=== PATIENT | male | born 1950 | race Caucasian/White ===

== ENCOUNTER 2020-01-04 05:16 | Inpatient (IN) ==
--- NOTE | 2019-12-25 10:36 | PAT Medication Instructions ---
Medication Instructions Date of Service December 25, 2019 Home Medications cholecalciferol (vitamin D3) [Vitamin D3] 2,000 unit PO QAM dutasteride 0.5 mg PO QPM gabapentin 300 mg PO BID gqtfmzuv-mcxro-yjbvo-CF borate [[employer] [facility]] 1 tab PO BID meloxicam [Mobic] 15 mg PO QAM pravastatin 20 mg PO HS tamsulosin 0.8 mg PO HS tramadol 100 mg PO BID PRN ASK your surgeon for instructions meloxicam [Mobic] 15 mg PO QAM STOP taking 2 weeks before surgery If surgery is within 2 weeks, stop taking as soon as possible. wadesmeb-kyrjx-ditqq-CF borate [[employer]] 1 tab PO BID DO NOT take the morning of surgery cholecalciferol (vitamin D3) [Vitamin D3] 2,000 unit PO QAM Take morning of surgery With a small sip of water, OTHERWISE NOTHING TO EAT OR DRINK AFTER MIDNIGHT: gabapentin 300 mg PO BID tramadol 100 mg PO BID PRN (if needed, may be taken up to four hours before surgery) Take evening before surgery dutasteride 0.5 mg PO QPM gabapentin 300 mg PO BID pravastatin 20 mg PO HS tamsulosin 0.8 mg PO HS tramadol 100 mg PO BID PRN (if needed) Other Notes If you have any questions please call us at [phone] or [phone] or [phone] or [phone]
--- NOTE | 2019-12-25 10:49 | Anesthesiology Consultation ---
Date of Service December 25, 2019 Assessment & Plan (1) Encounter for pre-operative examination: Chart Review Chart Review: Acceptable Risk for Surgery (pending surgeon ordered pcp clearance) and Patient seen in Pre Admission Testing Teaching & Discussion Instructed NPO after midnight before surgery, except medications with 15 cc of water. Medication instructions provided according to the PAT guidelines. History Surgery Operation Date: 01/04/20 09:10 Proposed Procedures p Right Total Knee Arthroplasty - Ronal Solis MD Height/Weight Height: 5 ft 9 in Weight: 95.3 kg Allergies Allergy/AdvReac Type Severity Reaction Status Date / Time No Known Allergies Allergy Verified 12/20/19 13:41 Medications Home Medications Medication Instructions Recorded Confirmed Last Taken cholecalciferol (vitamin D3) 2,000 unit PO QAM 12/20/19 12/20/19 Unknown [Vitamin D3] dutasteride 0.5 mg PO QPM 12/20/19 12/20/19 Unknown gabapentin 300 mg PO BID 12/20/19 12/20/19 Unknown pydcaidu-mutis-oqipz-CF borate 1 tab PO BID 12/20/19 12/20/19 Unknown [[facility] [employer] [facility]] meloxicam [Mobic] 15 mg PO QAM 12/20/19 12/20/19 Unknown pravastatin 20 mg PO HS 12/20/19 12/20/19 Unknown tamsulosin 0.8 mg PO HS 12/20/19 12/20/19 Unknown tramadol 100 mg PO BID PRN 12/20/19 12/20/19 Unknown Past Medical History Medical History BPH (benign prostatic hyperplasia) Hyperlipidemia Osteoarthritis Exercise / Class Metabolic Activity II 4-5 Yardwork/Stairs/Walk up hill (Denies CP or SOB with 1 FOS, but moving slowly, limited by knee pain) Past Surgical History Surgical History History of back surgery History of colonoscopy History of tonsillectomy and adenoidectomy Hx of meniscectomy of right knee Past Anesthesia History No Hx of Anesthesia Complications and No Family Hx of Anesthesia Complications History of PONV No Hx of PONV and No Hx of Motion Sickness Social History Smoking Status: Never smoker Do You Dip or Chew Tobacco: No (QUIT 8 YR AGO) Hx Alcohol Use: No Hx Substance Use: No Review of Systems Pt denies any recent chest pain, shortness of breath, palpitations, cough, fever or URI. Physical Exam Vital Signs BP: 142/82 P: 74bpm SPO2: 96% RA T: 97.8 F R: 16 ENMT Mouth: + loose teeth (2 very slightly loose molars); no dental restorations and no chipped teeth Thyromental Distance: > or= 3.5 Finger Breadths (3.5) Mallampati Class: II Mouth / Teeth: 1. loose 2. loose Neck normal visual inspection; neck extension not limited Respiratory normal respiratory effort Auscultation: lungs clear to auscultation bilaterally Cardiovascular Rate/Rhythm: regular rate and regular rhythm Heart Sounds: no murmur Vessels: no carotid bruit Testing Laboratory Results 12/25/19 11:00 12/25/19 11:00 PT 10.8 Seconds (9.0-12.0) 12/25/19 11:00 INR 1.1 (0.9-1.1) 12/25/19 11:00 APTT 27.2 Seconds (21.0-31.0) 12/25/19 11:00 Hemoglobin A1c 5.4 % (4.5-5.6) 12/25/19 11:00 Urine Color Dark Yellow 12/25/19 Unknown Urine Appearance Clear (Clear) 12/25/19 Unknown Urine pH 7.0 (4.5-7.5) 12/25/19 Unknown Ur Specific [place] 1.022 (1.000-1.030) 12/25/19 Unknown Urine Protein Negative (Negative) 12/25/19 Unknown Urine Glucose (UA) Negative (Negative) 12/25/19 Unknown Urine Ketones Negative (Negative) 12/25/19 Unknown Urine Nitrite Negative (Negative) 12/25/19 Unknown Ur Leukocyte Esterase Negative (Negative) 12/25/19 Unknown Blood Type O Positive 12/25/19 11:00 Antibody Screen NEGATIVE 12/25/19 11:00 Electrocardiogram Date: 12/25/19 Findings: + NSR @ (64bpm) Minimal voltage criteria for LVH, may be normal variant. Chest X-Ray Date: 12/25/19 Findings: + NAD Osteopenia.
--- NOTE | 2019-12-25 11:22 | XRay Report ---
TWO VIEW CHEST CLINICAL HISTORY: Preoperative examination. FINDINGS: PA and lateral chest radiographs are obtained. No prior studies are available for compariso n at the time of dictation. The cardiomediastinal silhouette is unremarkable. The lungs and pleural spaces are clear. There is no pneumothorax. The skeletal structures are osteopenic. The bony thorax appears intact. Degenerative changes noted throughout the thoracic spine. IMPRESSION: No active disease in the chest. ACT 112: Negative or not required by law. Electronically signed by: Isidoro Acosta M.D. 12/25/2019 11:21 AM
--- NOTE | 2019-12-25 12:26 | Electrocardiogram Report ---
Test Reason : Blood Pressure : / mmHG Vent. Rate : 064 BPM Atrial Rate : 064 BPM P-R Int : 176 ms QRS Dur : 092 ms QT Int : 416 ms P-R-T Axes : 072 046 060 degrees QTc Int : 429 ms Normal sinus rhythm Minimal voltage criteria for LVH, may be normal variant Borderline ECG No previous ECGs available Confirmed by Byron Ignacio ([id number]) on 12/25/2019 12:26:00 PM Referred By: Ronal Solis Confirmed By:Byron Ignacio
[2019-12-25 12:33] LABS: Basophils # (auto) 0.02 K/uL (0-0.2); Basophils % (auto) 0.5 %; Eosinophils # (auto) 0.14 K/uL (0-0.5); Eosinophils % (auto) 3.2 %; Hematocrit (blood only) 42.6 % (42-52); Hemoglobin 15.5 g/dL (14.0-18.0); Immature Granulocytes # (auto) 0.01 K/uL (0.00-0.02); Immature Granulocytes % (auto) 0.2 %; Lymphocytes # (auto) 1.35 K/uL (1.2-3.4); Lymphocytes % (auto) 30.6 %; Mean Corpuscular Hgb Conc 36.4 g/dL (32-36); Mean Platelet Volume 10.3 fL (7.4-10.4); Monocytes # (auto) 0.32 K/uL (0.11-0.59); Monocytes % (auto) 7.3 %; Neutrophils # (auto) 2.57 K/uL (1.4-6.5); Neutrophils % (auto) 58.2 %; Platelet Count 173 K/uL (130-400); RDW Coefficient of Variation 12.8 % (11.5-14.5); RDW Standard Deviation 41.1 fL (36.4-46.3); Red Blood Count 4.84 M/uL (4.7-6.1); White Blood Count 4.41 K/uL (4.8-10.8)
[2019-12-25 12:35] LABS: Appearance Urine Clear (Clear); Bilirubin Urine Negative (Negative); Blood Urine Negative (Negative); Color Urine Dark Yellow; Glucose Urine UA Negative (Negative); Ketones Urine Negative (Negative); Leukocyte Esterase Urine Negative (Negative); Nitrite Urine Negative (Negative); Protein Urine Negative (Negative); Specific Gravity Urine 1.022 (1.000-1.030); Urobilinogen Urine Negative (Negative)
[2019-12-25 12:45] LABS: INR 1.1 (0.9-1.1); Partial Thromboplastin Time 27.2 Seconds (21.0-31.0); Prothrombin Time 10.8 Seconds (9.0-12.0)
[2019-12-25 12:49] LABS: BUN Creatinine Ratio 20.5 (10-20); Calcium 9.3 mg/dl (8.5-10.1); Creatinine Clr Calc Pharmacy 87.5 ml/min; Est GFR (African American) 98.7; Est GFR (Non-African American) 85.2; Potassium 4.5 mmol/L (3.5-5.1)
[2019-12-25 13:09] LABS: Estimated Average Glucose 108 mg/dl; Hemoglobin A1C 5.4 % (4.5-5.6)
--- NOTE | 2019-12-25 14:23 | History & Physical Report ---
Date of Service December 25, 2019 Assessment & Plan (1) Primary osteoarthritis of right knee: Treatment options discussed. Patient has failed conservative measures as above. Risks, benefits and alternatives to surgery including but not limited to infection, DVT, pain, stiffness, need for revision surgery, damage to blood vessels, damage to nerves, PE, , were discussed with the patient and they wish to proceed. Plan will be for right total knee arthroplasty at [facility] on 01/04/20. We will plan on ASA 81mg BID x 30 days post operatively as DVT prophylaxis. He will plan on outpatient PT upon discharge. All questions answered. He will follow up post operatively. History of Present Illness Chief Complaint: Right knee pain Primary Care Provider: Bin Meier Patient is a 69 year old male with PMHx significant for BPH and OA presents with ongoing right knee pain. Pain is affecting his ability to carry out normal daily activites and do the activities he would like to do. He has tried and failed conservative measures including cortisone and visco injections, antiinflammatories, PT, as well as previous arthroscopy. He would like to proceed with right knee replacement. Patient denies headaches, sweats, fevers, chills, double vision, blurred vision, cough, sore throat, dysphagia, chest pain, sob, wheezing, n/v/d/c, numbness, tingling, fatigue, urinary symptoms, mood disorders. ROS positive for right knee pain and stiffness. Allergies Allergy/AdvReac Type Severity Reaction Status Date / Time No Known Allergies Allergy Verified 12/20/19 13:41 Home Medications Home Medications Medication Instructions Recorded Confirmed Type cholecalciferol (vitamin D3) 2,000 unit PO QAM 12/20/19 12/20/19 History [Vitamin D3] dutasteride 0.5 mg PO QPM 12/20/19 12/20/19 History gabapentin 300 mg PO BID 12/20/19 12/20/19 History bitnlqus-tyyqb-tdimq-CF borate 1 tab PO BID 12/20/19 12/20/19 History [[facility]] meloxicam [Mobic] 15 mg PO QAM 12/20/19 12/20/19 History pravastatin 20 mg PO HS 12/20/19 12/20/19 History tamsulosin 0.8 mg PO HS 12/20/19 12/20/19 History tramadol 100 mg PO BID PRN 12/20/19 12/20/19 History Past Med/Surg History Medical History BPH (benign prostatic hyperplasia) Hyperlipidemia Osteoarthritis Surgical History History of back surgery History of colonoscopy History of tonsillectomy and adenoidectomy Hx of meniscectomy of right knee Social History Preferred Language: Latvian Communication Ability: Effective Beliefs That Will Affect Care: None Current Living Situation: Spouse Current Living Situation Comment: IS SLIGHTLY DISABLES -DIABETES, AND MOBILITY ISSUES Feels Safe at Home: Yes Smoking Status: Never smoker Do You Dip or Chew Tobacco: No (QUIT 8 YR AGO) ; Second Hand Exposure: Yes (FATHER SMOKED AND AT WORK) ; Hx Alcohol Use: No Hx Substance Use: No Review of Systems All systems reviewed & are unremarkable except as noted in HPI & below Physical Exam Constitutional: well developed and well nourished; no acute distress Eyes: PERRL, conjunctivae normal, anicteric sclerae ENMT: external ear and nose normal, oropharynx normal Neck: trachea midline, no thyromegaly Respiratory: normal respiratory effort, lungs clear to auscultation Cardiovascular: RRR, no murmur, no edema Musculoskeletal: Right knee: Skin is normal. No lymphadenopathy is appreciated. Mild effusion, range of motion 0-135 flexion, negative anterior drawer, negative posterior drawer, negative Ramila's, knee stable to varus and valgus stress at 0 to 30 of flexion. Tender to palpation medial joint line, positive Eb's. Varus deformity Skin: no rashes, warm and dry Neurologic: patellar DTR's 2+ bilat, sensation intact Psychiatric: A+Ox3, euthymic affect Results & Data Laboratory Results Lab Results 12/25/19 12/25/19 12/25/19 Range/Units 11:00 11:00 11:00 WBC 4.41 L (4.8-10.8) K/uL RBC 4.84 (4.7-6.1) M/uL Hgb 15.5 (14.0-18.0) g/dL Hct 42.6 (42-52) % MCV 88.0 (80-100) fL MCH 32.0 (25-34) pg MCHC 36.4 H (32-36) g/dL RDW Std Deviation 41.1 (36.4-46.3) fL RDW Coeff of Andres 12.8 (11.5-14.5) % Plt Count 173 (130-400) K/uL MPV 10.3 (7.4-10.4) fL Immature Gran % (Auto) 0.2 % Neut % (Auto) 58.2 % Lymph % (Auto) 30.6 % [place] % (Auto) 7.3 % Eos % (Auto) 3.2 % Baso % (Auto) 0.5 % Immature Gran # (Auto) 0.01 (0.00-0.02) K/uL Neut # (Auto) 2.57 (1.4-6.5) K/uL Lymph # (Auto) 1.35 (1.2-3.4) K/uL [place] # (Auto) 0.32 (0.11-0.59) K/uL Eos # (Auto) 0.14 (0-0.5) K/uL Baso # (Auto) 0.02 (0-0.2) K/uL PT 10.8 (9.0-12.0) Seconds INR 1.1 (0.9-1.1) APTT 27.2 (21.0-31.0) Seconds PTT Ratio 1.0 Sodium 141 (136-145) mmol/L Potassium 4.5 (3.5-5.1) mmol/L Chloride 108 H (98-107) mmol/L Carbon Dioxide 31 (21-32) mmol/L Anion Gap 2.0 L (3-11) BUN 19 H (7-18) mg/dl Creatinine 0.92 (0.6-1.4) mg/dl Est Cr Clr Drug Dosing 87.5 ml/min Est GFR ( Amer) 98.7 Est GFR (Non-Af Amer) 85.2 BUN/Creatinine Ratio 20.5 H (10-20) Glucose 76 (70-99) mg/dl Estimat Average Glucose mg/dl Hemoglobin A1c (4.5-5.6) % Calcium 9.3 (8.5-10.1) mg/dl Albumin 4.0 (3.4-5.0) gm/dl Urine Color Urine Appearance (Clear) Urine pH (4.5-7.5) Ur Specific [place] (1.000-1.030) Urine Protein (Negative) Urine Glucose (UA) (Negative) Urine Ketones (Negative) Urine Blood (Negative) Urine Nitrite (Negative) Urine Bilirubin (Negative) Urine Urobilinogen (Negative) Ur Leukocyte Esterase (Negative) Blood Type Antibody Screen 12/25/19 12/25/19 12/25/19 Range/Units 11:00 11:00 Unknown WBC (4.8-10.8) K/uL RBC (4.7-6.1) M/uL Hgb (14.0-18.0) g/dL Hct (42-52) % MCV (80-100) fL MCH (25-34) pg MCHC (32-36) g/dL RDW Std Deviation (36.4-46.3) fL RDW Coeff of Andres (11.5-14.5) % Plt Count (130-400) K/uL MPV (7.4-10.4) fL Immature Gran % (Auto) % Neut % (Auto) % Lymph % (Auto) % [place] % (Auto) % Eos % (Auto) % Baso % (Auto) % Immature Gran # (Auto) (0.00-0.02) K/uL Neut # (Auto) (1.4-6.5) K/uL Lymph # (Auto) (1.2-3.4) K/uL [place] # (Auto) (0.11-0.59) K/uL Eos # (Auto) (0-0.5) K/uL Baso # (Auto) (0-0.2) K/uL PT (9.0-12.0) Seconds INR (0.9-1.1) APTT (21.0-31.0) Seconds PTT Ratio Sodium (136-145) mmol/L Potassium (3.5-5.1) mmol/L Chloride (98-107) mmol/L Carbon Dioxide (21-32) mmol/L Anion Gap (3-11) BUN (7-18) mg/dl Creatinine (0.6-1.4) mg/dl Est Cr Clr Drug Dosing ml/min Est GFR ( Amer) Est GFR (Non-Af Amer) BUN/Creatinine Ratio (10-20) Glucose (70-99) mg/dl Estimat Average Glucose 108 mg/dl Hemoglobin A1c 5.4 (4.5-5.6) % Calcium (8.5-10.1) mg/dl Albumin (3.4-5.0) gm/dl Urine Color Dark Yellow Urine Appearance Clear (Clear) Urine pH 7.0 (4.5-7.5) Ur Specific [place] 1.022 (1.000-1.030) Urine Protein Negative (Negative) Urine Glucose (UA) Negative (Negative) Urine Ketones Negative (Negative) Urine Blood Negative (Negative) Urine Nitrite Negative (Negative) Urine Bilirubin Negative (Negative) Urine Urobilinogen Negative (Negative) Ur Leukocyte Esterase Negative (Negative) Blood Type O Positive Antibody Screen NEGATIVE Diagnostic Findings Right knee: Tricompartmental degenerative changes with bone on bone medial compartment, periarticular osteophyte formation and subchondral sclerosis.
[2020-01-04] MEDS ORDERED: FAMOTIDINE 20 MG TAB PO SCH (06:00)
[2020-01-04] MEDS ORDERED: ROPIVACAINE 0.5% HCL/PF 150 MG, BUPIVACAINE 0.5% MPF 30 ML, EPINEPHrine 30MG/30ML (OR U... INSTIL SCH (06:00)
[2020-01-04] MEDS ORDERED: CeleBREX 200 MG CAP PO SCH (06:00)
[2020-01-04] MEDS ORDERED: ACETAMINOPHEN 500 MG TAB PO SCH (06:00)
[2020-01-04] MEDS ORDERED: LR 500ML BOLUS, THEN 15ML/HR IV SCH (06:00)
[2020-01-04] MEDS ORDERED: dexAMETHasone 4 MG TAB PO SCH (06:00)
[2020-01-04] MEDS ORDERED: CEFAZOLIN 2000MG 2,000 MG/15 ML SYR IV SCH (06:00)
[2020-01-04] MEDS ORDERED: GABAPENTIN 300 MG CAP PO SCH (06:00)
[2020-01-04] MEDS ORDERED: METOCLOPRAMIDE HCL 10 MG TABLET PO SCH (06:00)
[2020-01-04] MEDS ORDERED: BUPIVACAINE 0.5 % 5 MG/1 ML PF 10ML VIAL ONE (06:23)
[2020-01-04] MEDS ORDERED: BUPIVACAINE 0.25% 30 ML VIAL ONE (06:23)
--- NOTE | 2020-01-04 06:49 | History & Physical Bridge Note ---
Date of Service January 04, 2020 History & Physical Bridge Note I have examined the patient, reviewed the History & Physical and in the interval since the performance of the History & Physical I have noted the following changes of clinical significance: no changes noted
[2020-01-04] MEDS ORDERED: ORTHO JOINT ANESTHETIC ONE (07:00)
[2020-01-04] MEDS ORDERED: BACITRACIN INJ 50,000 UNIT VIAL ONE (07:00)
[2020-01-04] MEDS ORDERED: LIDOCAINE HCL 2% 2 ML VIAL/AMP(20MG/ML) INFIL ONE (07:08)
[2020-01-04] MEDS ORDERED: DEXAMETHASONE SOD INJ 4 MG/ML VIAL ONE (07:08)
[2020-01-04] MEDS ORDERED: fentaNYL citrate 100 MCG/2 ML VIAL ONE (07:08)
[2020-01-04] MEDS ORDERED: ONDANSETRON INJ 2 MG/ML 2 ML VIAL ONE (07:08)
[2020-01-04] MEDS ORDERED: MIDAZOLAM HCL 1 MG/ML 2ML VIAL ONE (07:08)
[2020-01-04] MEDS ORDERED: PROPOFOL IV EMULSION 10 MG/ML 20 ML VIAL IV ONE ×2 (07:08→09:02)
[2020-01-04] MEDS ORDERED: ONDANSETRON INJ 2 MG/ML 2 ML VIAL IV PRN ×2 (08:26→10:46)
[2020-01-04] MEDS ORDERED: ATROPINE SULFATE 0.1 MG/ML 10ML SYR IV PRN (08:26)
[2020-01-04] MEDS ORDERED: ePHEDrine sulfate 50 MG/ML AMP IV PRN (08:26)
[2020-01-04] MEDS ORDERED: fentaNYL citrate 100 MCG/2 ML VIAL IV PRN (08:26)
--- NOTE | 2020-01-04 09:05 | Operative Report ---
Post Operative Report Pre & Post Diagnosis Operation Date: 01/04/20 07:30 Pre-Op Diagnosis: RIGHT KNEE OSTEOARTHRITIS Post-Op Diagnosis: RIGHT KNEE OSTEOARTHRITIS I identified the patient and participated in the time-out.: Yes Procedure Operation Date: 01/04/20 07:30 Actual Procedures p Right Total Knee Arthroplasty(Right) - Ronal Solis MD Surgeon Ronal Solis MD Vascular Technician Sotero Suresh PA-C Estimated Blood Loss 20 Findings Consistent with Post-Op Diagnosis Specimens None Drains None Anesthesia Type Spinal MAC Complications none Disposition Accompanied Patient To Recovery: No Disposition: Recovery Room Indications The patient is a 69-year-old male longstanding arthritic change in the right knee. Is pggv-[id number]-lokd medial compartment tricompartmental arthritic change. He is failed conservative measures include injection, anti-inflammatories and rehab. He wishes to proceed with a right total knee arthroplasty. Description of Procedure Risks benefits and alternatives of surgery including but not limited to infection, DVT, pain, stiffness, need for surgery, damage to blood vessels, christian ge to nerves or risks of anesthesia were discussed with the patient and they wished to proceed. The patient was identified and the laterality was confirmed and marked. They received a preoperative antibiotic as well as a spinal anesthetic and an abductor canal block. A well-padded tourniquet was applied and then the limb was prepped and draped in standard manner with ChloraPrep. The limb was exsanguinated and the tourniquet was inflated. I made a standard anterior incision. I sharply incised the skin then utilized Bovie electrocautery to achieve hemostasis. I made a medial parapatellar arthrotomy and mobilized the patella laterally. I then excised the anterior horns of the medial and lateral meniscus as well as the infrapatellar fat pad. I elevated a portion of the MCL off of the tibia. I then pinned into place a patient-matched distal femoral cutting guide and made my distal femoral resection. I then pinned into place the 5 in 1 femoral cutting guide. I made my anterior, posterior and chamfer cuts. I then excised the cruciates and the remaining portions of the menisci. I then pinned into place a patient- matched tibial cutting guide and made my tibial resection. I then pinned into place the tibial plate a utilizing alignment halima to confirm rotation. I then cut for the post. Utilizing a lamina fan mail clerk and I then removed posterior osteophytes off the femur. I then placed a trial femur into position and cut for the trochlear component. I then sequentially trialed to size the polyethylene until there was good soft tissue balancing and range of motion. I then prepared the patella with a freehand cut utilizing sagittal saw. I sized and drilled for the patella. There was good tracking to the patella no lateral release was needed. All the trial components were removed. The deep tissues were anesthetized with an ortho mix solution. Then with Simplex HV with gentamicin cement, I cemented my definitive components. Definitive components, [employer] [place] 2: Femur 7 Tibia 7 Poly 9 Patella 41 oval A betadine soak was performed. The arthrotomy was closed with interrupted #1 Vicryl suture subcutaneous tissue was closed with interrupted 2-0 Vicryl suture. The skin was closed with with valeria. An Acticoat and María dressing were placed. Sterile dressings were applied. All needle and sponge counts were correct at th e end of the procedure patient was transferred to the PACU in stable condition without apparent complication. The PA-C was necessary for assistance with procedure for assistance in positioning, prepping, draping, retraction and closure. I attest to the content of the Intraoperative Record and any orders documented therein. Any exceptions are noted below.
--- NOTE | 2020-01-04 10:16 | Anesthesiology Progress Note ---
Date of Service January 04, 2020 Anesthesia Post Procedure Vital Signs Vital Signs: Temp Pulse Resp BP Pulse Ox 01/04/20 10:10 72 14 96/72 L 95 01/04/20 10:00 66 15 101/63 94 01/04/20 09:51 36.2 C L 75 16 91/61 L 96 01/04/20 05:52 36.6 C 72 16 142/84 H 96 Pain Intensity Right Knee: Pain Intensity: 6 Transfer of Care Handoff Completed per policy Notes Mental Status: alert / awake / arousable and participated in evaluation Nausea / Vomiting: adequately controlled Pain: adequately controlled Airway Patency, RR, SpO2: stable & adequate BP & HR: stable & adequate Hydration State: stable & adequate Neuraxial Anesthesia: was administered and sensory block is resolving Anesthetic Complications: no major complications apparent and Pt Satisfied with anesthetic care
--- NOTE | 2020-01-04 10:45 | XRay Report ---
XR knee RT 1 or 2V routine CLINICAL HISTORY: 69 years-old Male presenting with Surgical Post Op. TECHNIQUE: Frontal and crosstable lateral views of the right knee were obtained. COMPARISON: None. FINDINGS: Postsurgical changes of total right knee arthroplasty with patellar resurfacing. Overlying skin stapl es noted. Expected intra-articular and soft tissue emphysema. No periprosthetic lucency or fracture. No malalignment. IMPRESSION: Expected postsurgical appearance status post total right knee arthroplasty with patellar resurfacing. ACT 112: Negative or not required by law. Electronically signed by: Ronal Deras M.D. 01/04/2020 10:44 AM
[2020-01-04] MEDS ORDERED: METOCLOPRAMIDE HCL INJ 5 MG/ML 2 ML VIAL IV PRN (10:46)
[2020-01-04] MEDS ORDERED: NALOXONE HCL 0.4 MG/1 ML VIAL/CARP IV PRN (10:46)
[2020-01-04] MEDS ORDERED: HYDROmorphone INJ 0.5 MG/0.5 ML SYR IV PRN (10:46)
[2020-01-04] MEDS ORDERED: MAGNESIUM HYDROXIDE SUSP 30 ML UDC PO PRN (10:46)
[2020-01-04] MEDS ORDERED: bisacodyL 10 MG SUPP PR PRN (10:46)
[2020-01-04] MEDS: SODIUM CHLORIDE 0.9% 1000ML 1,000 ML IV SCH ×2 (13:30→20:39)
[2020-01-04] MEDS: ACETAMINOPHEN 500 MG TAB PO SCH ×2 (13:32→21:07)
[2020-01-04] MEDS: DUTASTERIDE: ORDER AWAITING ACTION SCH ×2 (13:32→15:11)
[2020-01-04] MEDS: CEFAZOLIN 2000MG 2,000 MG/15 ML SYR IV SCH (15:16)
[2020-01-04] MEDS: DOCUSATE SODIUM 100 MG CAP PO SCH (20:30)
[2020-01-04] MEDS: GABAPENTIN 300 MG CAP PO SCH (20:30)
[2020-01-04] MEDS: TAMSULOSIN HCL 0.4 MG CAP PO SCH (20:30)
[2020-01-04] MEDS: CeleBREX 200 MG CAP PO SCH (20:31)
[2020-01-04] MEDS: SENNA 8.6 MG TAB PO SCH (20:31)
[2020-01-04] MEDS: ASPIRIN 81 MG ECTAB PO SCH (20:31)
[2020-01-04] MEDS: PRAVASTATIN SOD 20 MG TAB PO SCH (20:31)
[2020-01-04] MEDS ORDERED: NON-FORMULARY MEDICATION (Glucosam-Chond-Hyalu-Cf Borate [Move Free Joint Health] 1 TAB) PO SCH (21:00)
[2020-01-05] MEDS: CEFAZOLIN 2000MG 2,000 MG/15 ML SYR IV SCH
[2020-01-05] MEDS: ACETAMINOPHEN 500 MG TAB PO SCH ×3 (06:14→21:42)
[2020-01-05 06:41] LABS: Hematocrit (blood only) 32.2 % (42-52); Hemoglobin 11.2 g/dL (14.0-18.0); Mean Corpuscular Hemoglobin 30.9 pg (25-34); Mean Corpuscular Hgb Conc 34.8 g/dL (32-36); Mean Platelet Volume 10.3 fL (7.4-10.4); Platelet Count 150 K/uL (130-400); RDW Coefficient of Variation 12.7 % (11.5-14.5); RDW Standard Deviation 40.9 fL (36.4-46.3); Red Blood Count 3.62 M/uL (4.7-6.1); White Blood Count 10.95 K/uL (4.8-10.8)
[2020-01-05 07:16] LABS: Est GFR (African American) 82.2
[2020-01-05 07:17] LABS: BUN Creatinine Ratio 26.4 (10-20); Calcium 8.7 mg/dl (8.5-10.1); Creatinine Clr Calc Pharmacy 74.9 ml/min
--- NOTE | 2020-01-05 07:36 | Orthopedic Progress Note ---
Date of Service January 05, 2020 Assessment & Plan (1) Primary osteoarthritis of right knee: POD#1 Right TKA -PT/OT -DVT prophylaxis-ASA 81mg BID x 30 days -Pain management -AM labs-hemoglobin 11.2, ABL likely due to surgical loss vs dilutional effect -D/C planning-Patient would like inpatient rehab. He will discuss with case management. If denied likely will need HHPT. Admission and Anticipated Discharge Date Admission Date: January 04, 2020 Subjective Patient is doing well this morning, pain is controlled. He is resting in bed comfortably. He is concerned about going home due to not having help at home as his is disabled and would like inpatient rehab stay. Review of Systems Review of Systems: All systems reviewed & are unremarkable except as noted in HPI & below Physical Exam Physical Exam: Patient is resting in bed comfortably. Dressing is c/d/i. María in place. No calf tenderness. Toes mobile, good dorsiflexion. Distally n/v status and sensation intact. Constitutional: well developed and well nourished; no acute distress Results & Data ([facility]) Vital Signs (Past 12 Hours) Vital Signs Temp Pulse Pulse Resp BP Pulse Ox 01/05/20 03:03 36.5 C 62 16 98/57 L 93 01/05/20 00:00 36.5 C 64 16 102/66 95 01/04/20 20:15 36.6 C 60 16 106/64 96 Laboratory Results H & H 12/25/19 01/05/20 Range/Units 11:00 06:13 Hgb 15.5 11.2 L (14.0-18.0) g/dL Hct 42.6 32.2 L (42-52) % Coagulation 12/25/19 Range/Units 11:00 INR 1.1 (0.9-1.1)
--- NOTE | 2020-01-05 08:02 | Anesthesiology Progress Note ---
Date of Service January 05, 2020 Anesthesia Post Procedure Vital Signs Vital Signs: Temp Pulse Pulse Pulse Resp BP BP 01/05/20 03:03 36.5 C 62 16 98/57 L 01/05/20 00:00 36.5 C 64 16 102/66 01/04/20 20:15 36.6 C 60 16 106/64 01/04/20 16:07 36.4 C L 76 18 126/81 01/04/20 13:35 36.3 C L 70 16 108/75 01/04/20 12:38 36.5 C 73 18 118/76 01/04/20 11:33 36.5 C 65 16 109/72 01/04/20 11:06 36.4 C L 63 16 105/69 01/04/20 10:35 36.5 C 66 16 107/70 01/04/20 10:20 36.4 C L 68 15 115/70 01/04/20 10:10 72 14 96/72 L 01/04/20 10:00 66 15 101/63 01/04/20 09:51 36.2 C L 75 16 91/61 L Pulse Ox 01/05/20 03:03 93 01/05/20 00:00 95 01/04/20 20:15 96 01/04/20 16:07 93 01/04/20 13:35 95 01/04/20 12:38 96 01/04/20 11:33 96 01/04/20 11:06 95 01/04/20 10:35 95 01/04/20 10:20 94 01/04/20 10:10 95 01/04/20 10:00 94 01/04/20 09:51 96 Pain Intensity Right Knee: Pain Intensity: 0 Notes Mental Status: alert / awake / arousable and participated in evaluation Patient Amnestic to Procedure: Yes Nausea / Vomiting: adequately controlled Pain: adequately controlled Airway Patency, RR, SpO2: stable & adequate BP & HR: stable & adequate Hydration State: stable & adequate Neuraxial Anesthesia: was administered and sensory block resolved Anesthetic Complications: no major complications apparent and Pt Satisfied with anesthetic care
[2020-01-05] MEDS: DUTASTERIDE: ORDER AWAITING ACTION SCH ×4 (08:30→23:56)
[2020-01-05] MEDS: CHOLECALCIFEROL 1,000 UNITS 25 MCG TAB PO SCH (09:25)
[2020-01-05] MEDS: MULTIVITAMIN TAB PO SCH (09:26)
[2020-01-05] MEDS: ASPIRIN 81 MG ECTAB PO SCH ×2 (09:26→20:26)
[2020-01-05] MEDS: GABAPENTIN 300 MG CAP PO SCH ×2 (09:26→20:26)
[2020-01-05] MEDS: DOCUSATE SODIUM 100 MG CAP PO SCH ×2 (09:27→20:25)
[2020-01-05] MEDS: CeleBREX 200 MG CAP PO SCH ×2 (09:27→20:22)
[2020-01-05] MEDS: OXYCODONE HCL IR 5 MG TAB (IMMEDIATE RELEASE) PO PRN ×3 (09:30→20:22)
[2020-01-05] MEDS: TAMSULOSIN HCL 0.4 MG CAP PO SCH (20:26)
[2020-01-05] MEDS: PRAVASTATIN SOD 20 MG TAB PO SCH (20:27)
[2020-01-05] MEDS: SENNA 8.6 MG TAB PO SCH (20:27)
[2020-01-06] MEDS: OXYCODONE HCL IR 5 MG TAB (IMMEDIATE RELEASE) PO PRN ×2 (04:19→09:09)
[2020-01-06] MEDS: ACETAMINOPHEN 500 MG TAB PO SCH (06:29)
--- NOTE | 2020-01-06 06:46 | Orthopedic Progress Note ---
Date of Service January 06, 2020 Assessment & Plan (1) History of total right knee replacement: -PT/OT -DVT prophylaxis-ASA 81mg BID x 30 days -Pain management -D/C planning- plan for d/c home with HHPT Admission and Anticipated Discharge Date Admission Date: January 04, 2020 Subjective POD #2 s/p Right TKA Review of Systems Review of Systems: All systems reviewed & are unremarkable except as noted in HPI & below Constitutional: no fever and no chills Respiratory: no cough and no dyspnea Cardiovascular: no chest pain, no dyspnea and no orthopnea Gastrointestinal: no abdominal pain, no nausea and no vomiting Physical Exam Physical Exam: Vital Signs Temp 36.7 C 01/05/20 23:03 Pulse 66 01/05/20 23:03 Resp 16 01/05/20 23:03 BP 111/68 01/05/20 23:03 Pulse Ox 96 01/05/20 23:03 Intake & Output 01/05/20 01/05/20 01/06/20 06:59 18:59 06:59 Intake Total 900 / 3940 325 / 565 240 / 565 Output Total 850 / 2045 Balance 50 / 1895 325 / 565 240 / 565 Intake: IV 700 / 1500 Nss 1000ML 1,0 00 ml @ 100 mls/ 700 / 700 hr IV .Q10H SC H Rx#:[id number] Oral 200 / 440 325 / 565 240 / 565 Output: Urine 850 / 5 Other: # Unmeasured Voi ds 1 2 Constitutional: WD/WN, vitals as above no acute distress Musculoskeletal: Right leg: NVDI, calf SNT, negative javier sign. DP palpable, able to wiggle toes/ankle movement without difficulty. AGUILAR dressing clean dry and intact. expected post-operative bruising noted. Results & Data ([facility]) Vital Signs (Past 12 Hours) Vital Signs Temp Pulse Resp BP Pulse Ox 01/05/20 23:03 36.7 C 66 16 111/68 96 Laboratory Results Laboratory Results WBC 10.95 K/uL (4.8-10.8) H 01/05/20 06:13 RBC 3.62 M/uL (4.7-6.1) L 01/05/20 06:13 Hgb 11.2 g/dL (14.0-18.0) L 01/05/20 06:13 Hct 32.2 % (42-52) L 01/05/20 06:13 MCV 89.0 fL (80-100) 01/05/20 06:13 MCH 30.9 pg (25-34) 01/05/20 06:13 MCHC 34.8 g/dL (32-36) 01/05/20 06:13 RDW Std Deviation 40.9 fL (36.4-46.3) 01/05/20 06:13 RDW Coeff of Andres 12.7 % (11.5-14.5) 01/05/20 06:13 Plt Count 150 K/uL (130-400) 01/05/20 06:13 MPV 10.3 fL (7.4-10.4) 01/05/20 06:13 Immature Gran % (Auto) 0.2 % 12/25/19 11:00 Neut % (Auto) 58.2 % 12/25/19 11:00 Lymph % (Auto) 30.6 % 12/25/19 11:00 [place] % (Auto) 7.3 % 12/25/19 11:00 Eos % (Auto) 3.2 % 12/25/19 11:00 Baso % (Auto) 0.5 % 12/25/19 11:00 Immature Gran # (Auto) 0.01 K/uL (0.00-0.02) 12/25/19 11:00 Neut # (Auto) 2.57 K/uL (1.4-6.5) 12/25/19 11:00 Lymph # (Auto) 1.35 K/uL (1.2-3.4) 12/25/19 11:00 [place] # (Auto) 0.32 K/uL (0.11-0.59) 12/25/19 11:00 Eos # (Auto) 0.14 K/uL (0-0.5) 12/25/19 11:00 Baso # (Auto) 0.02 K/uL (0-0.2) 12/25/19 11:00 PT 10.8 Seconds (9.0-12.0) 12/25/19 11:00 INR 1.1 (0.9-1.1) 12/25/19 11:00 APTT 27.2 Seconds (21.0-31.0) 12/25/19 11:00 PTT Ratio 1.0 12/25/19 11:00 Sodium 139 mmol/L (136-145) 01/05/20 06:13 Potassium 4.0 mmol/L (3.5-5.1) 01/05/20 06:13 Chloride 109 mmol/L (98-107) H 01/05/20 06:13 Carbon Dioxide 24 mmol/L (21-32) 01/05/20 06:13 Anion Gap 6.0 (3-11) 01/05/20 06:13 BUN 28 mg/dl (7-18) H 01/05/20 06:13 Creatinine 1.07 mg/dl (0.6-1.4) 01/05/20 06:13 Est Cr Clr Drug Dosing 74.9 ml/min 01/05/20 06:13 Est GFR ( Amer) 82.2 01/05/20 06:13 Est GFR (Non-Af Amer) 71.0 01/05/20 06:13 BUN/Creatinine Ratio 26.4 (10-20) H 01/05/20 06:13 Glucose 119 mg/dl (70-99) H 01/05/20 06:13 Estimat Average Glucose 108 mg/dl 12/25/19 11:00 Hemoglobin A1c 5.4 % (4.5-5.6) 12/25/19 11:00 Calcium 8.7 mg/dl (8.5-10.1) 01/05/20 06:13 Albumin 4.0 gm/dl (3.4-5.0) 12/25/19 11:00 Urine Color Dark Yellow 12/25/19 Unknown Urine Appearance Clear (Clear) 12/25/19 Unknown Urine pH 7.0 (4.5-7.5) 12/25/19 Unknown Ur Specific [place] 1.022 (1.000-1.030) 12/25/19 Unknown Urine Protein Negative (Negative) 12/25/19 Unknown Urine Glucose (UA) Negative (Negative) 12/25/19 Unknown Urine Ketones Negative (Negative) 12/25/19 Unknown Urine Blood Negative (Negative) 12/25/19 Unknown Urine Nitrite Negative (Negative) 12/25/19 Unknown Urine Bilirubin Negative (Negative) 12/25/19 Unknown Urine Urobilinogen Negative (Negative) 12/25/19 Unknown Ur Leukocyte Esterase Negative (Negative) 12/25/19 Unknown Blood Type O Positive 12/25/19 11:00 Antibody Screen NEGATIVE 12/25/19 11:00
[2020-01-06] MEDS: CeleBREX 200 MG CAP PO SCH (09:03)
[2020-01-06] MEDS: MULTIVITAMIN TAB PO SCH (09:03)
[2020-01-06] MEDS: DOCUSATE SODIUM 100 MG CAP PO SCH (09:03)
[2020-01-06] MEDS: CHOLECALCIFEROL 1,000 UNITS 25 MCG TAB PO SCH (09:03)
[2020-01-06] MEDS: ASPIRIN 81 MG ECTAB PO SCH (09:03)
[2020-01-06] MEDS: GABAPENTIN 300 MG CAP PO SCH (09:03)
[2020-01-06] MEDS: DUTASTERIDE: ORDER AWAITING ACTION SCH (09:04)
--- NOTE | 2020-01-06 13:40 | Discharge Summary ---
Date of Service January 06, 2020 Admission HPI Per Admitting Provider Patient is a 69 year old male with PMHx significant for BPH and OA presents with ongoing right knee pain. Pain is affecting his ability to carry out normal daily activites and do the activities he would like to do. He has tried and failed conservative measures including cortisone and visco injections, antiinflammatories, PT, as well as previous arthroscopy. He would like to proceed with right knee replacement. Patient denies headaches, sweats, fevers, chills, double vision, blurred vision, cough, sore throat, dysphagia, chest pain, sob, wheezing, n/v/d/c, numbness, tingling, fatigue, urinary symptoms, mood disorders. ROS positive for right knee pain and stiffness. Admission Exam Per Admitting Provider Constitutional: well developed and well nourished; no acute distress Eyes: PERRL, conjunctivae normal, anicteric sclerae ENMT: external ear and nose normal, oropharynx normal Neck: trachea midline, no thyromegaly Respiratory: normal respiratory effort, lungs clear to auscultation Cardiovascular: RRR, no murmur, no edema Musculoskeletal: Right knee: Skin is normal. No lymphadenopathy is appreciated. Mild effusion, range of motion 0-135 flexion, negative anterior drawer, negative posterior drawer, negative Ramila's, knee stable to varus and valgus stress at 0 to 30 of flexion. Tender to palpation medial joint line, positive Eb's. Varus deformity Skin: no rashes, warm and dry Neurologic: patellar DTR's 2+ bilat, sensation intact Psychiatric: A+Ox3, euthymic affect Principal Diagnosis Right knee osteoarthritis Discharge Exam Constitutional well developed and well nourished; no acute distress Eyes PERRL, conjunctivae normal, anicteric sclerae ENMT external ear and nose normal, oropharynx normal Neck trachea midline, no thyromegaly Respiratory normal respiratory effort, lungs clear to auscultation Cardiovascular RRR, no murmur, no edema Skin no rashes, warm and dry Neurologic patellar DTR's 2+ bilat, sensation intact Psychiatric A+Ox3, euthymic affect Discharge Data Allergies Allergy/AdvReac Type Severity Reaction Status Date / Time No Known Allergies Allergy Verified 01/04/20 05:49 Consultations 01/04/20 10:46 Consult Case Management - Discharge Planning Routine Procedures Performed Operation Date: 01/04/20 07:30 Actual Procedures p Right Total Knee Arthroplasty(Right) - Ronal Solis MD Ordered Studies 01/04/20 05:00 US - OR guided needle placemen Routine Hospital Course (1) History of total right knee replacement: Patient presented for same day admission following right total knee arthroplasty on 01/04/20. He tolerated procedure well. The Patient had an une ventful hospital course. Post-operatively, his activity was progressed and well tolerated. They participated in PT with ambulation distance of 315 feet. ROM of operative knee reached 78 degrees on POD#1. Labs remained stable- lowest hemoglobin recorded: 11.2. Pain controlled on oral medications. Please refer to daily progress notes and PT notes for complete details. After exam on 01/06/20, patient was felt to be stable for discharge home with plans on home health PT. Patient will f/u in the office in about 2 weeks for further evaluation including x-rays and incision check, sooner if having any issues or concerns. Lab Results 12/25/19 12/25/19 12/25/19 Range/Units 11:00 11:00 11:00 WBC 4.41 L (4.8-10.8) K/uL RBC 4.84 (4.7-6.1) M/uL Hgb 15.5 (14.0-18.0) g/dL Hct 42.6 (42-52) % MCV 88.0 (80-100) fL MCH 32.0 (25-34) pg MCHC 36.4 H (32-36) g/dL RDW Std Deviation 41.1 (36.4-46.3) fL RDW Coeff of Andres 12.8 (11.5-14.5) % Plt Count 173 (130-400) K/uL MPV 10.3 (7.4-10.4) fL Immature Gran % (Auto) 0.2 % Neut % (Auto) 58.2 % Lymph % (Auto) 30.6 % [place] % (Auto) 7.3 % Eos % (Auto) 3.2 % Baso % (Auto) 0.5 % Immature Gran # (Auto) 0.01 (0.00-0.02) K/uL Neut # (Auto) 2.57 (1.4-6.5) K/uL Lymph # (Auto) 1.35 (1.2-3.4) K/uL [place] # (Auto) 0.32 (0.11-0.59) K/uL Eos # (Auto) 0.14 (0-0.5) K/uL Baso # (Auto) 0.02 (0-0.2) K/uL PT 10.8 (9.0-12.0) Seconds INR 1.1 (0.9-1.1) APTT 27.2 (21.0-31.0) Seconds PTT Ratio 1.0 Sodium 141 (136-145) mmol/L Potassium 4.5 (3.5-5.1) mmol/L Chloride 108 H (98-107) mmol/L Carbon Dioxide 31 (21-32) mmol/L Anion Gap 2.0 L (3-11) BUN 19 H (7-18) mg/dl Creatinine 0.92 (0.6-1.4) mg/dl Est Cr Clr Drug Dosing 87.5 ml/min Est GFR ( Amer) 98.7 Est GFR (Non-Af Amer) 85.2 BUN/Creatinine Ratio 20.5 H (10-20) Glucose 76 (70-99) mg/dl Estimat Average Glucose mg/dl Hemoglobin A1c (4.5-5.6) % Calcium 9.3 (8.5-10.1) mg/dl Albumin 4.0 (3.4-5.0) gm/dl Urine Color Urine Appearance (Clear) Urine pH (4.5-7.5) Ur Specific [place] (1.000-1.030) Urine Protein (Negative) Urine Glucose (UA) (Negative) Urine Ketones (Negative) Urine Blood (Negative) Urine Nitrite (Negative) Urine Bilirubin (Negative) Urine Urobilinogen (Negative) Ur Leukocyte Esterase (Negative) Blood Type Antibody Screen 12/25/19 12/25/19 12/25/19 Range/Units 11:00 11:00 Unknown WBC (4.8-10.8) K/uL RBC (4.7-6.1) M/uL Hgb (14.0-18.0) g/dL Hct (42-52) % MCV (80-100) fL MCH (25-34) pg MCHC (32-36) g/dL RDW Std Deviation (36.4-46.3) fL RDW Coeff of Andres (11.5-14.5) % Plt Count (130-400) K/uL MPV (7.4-10.4) fL Immature Gran % (Auto) % Neut % (Auto) % Lymph % (Auto) % [place] % (Auto) % Eos % (Auto) % Baso % (Auto) % Immature Gran # (Auto) (0.00-0.02) K/uL Neut # (Auto) (1.4-6.5) K/uL Lymph # (Auto) (1.2-3.4) K/uL [place] # (Auto) (0.11-0.59) K/uL Eos # (Auto) (0-0.5) K/uL Baso # (Auto) (0-0.2) K/uL PT (9.0-12.0) Seconds INR (0.9-1.1) APTT (21.0-31.0) Seconds PTT Ratio Sodium (136-145) mmol/L Potassium (3.5-5.1) mmol/L Chloride (98-107) mmol/L Carbon Dioxide (21-32) mmol/L Anion Gap (3-11) BUN (7-18) mg/dl Creatinine (0.6-1.4) mg/dl Est Cr Clr Drug Dosing ml/min Est GFR ( Amer) Est GFR (Non-Af Amer) BUN/Creatinine Ratio (10-20) Glucose (70-99) mg/dl Estimat Average Glucose 108 mg/dl Hemoglobin A1c 5.4 (4.5-5.6) % Calcium (8.5-10.1) mg/dl Albumin (3.4-5.0) gm/dl Urine Color Dark Yellow Urine Appearance Clear (Clear) Urine pH 7.0 (4.5-7.5) Ur Specific [place] 1.022 (1.000-1.030) Urine Protein Negative (Negative) Urine Glucose (UA) Negative (Negative) Urine Ketones Negative (Negative) Urine Blood Negative (Negative) Urine Nitrite Negative (Negative) Urine Bilirubin Negative (Negative) Urine Urobilinogen Negative (Negative) Ur Leukocyte Esterase Negative (Negative) Blood Type O Positive Antibody Screen NEGATIVE 02/21/20 02/21/20 Range/Units 06:13 06:13 WBC 10.95 H (4.8-10.8) K/uL RBC 3.62 L (4.7-6.1) M/uL Hgb 11.2 L (14.0-18.0) g/dL Hct 32.2 L (42-52) % MCV 89.0 (80-100) fL MCH 30.9 (25-34) pg MCHC 34.8 (32-36) g/dL RDW Std Deviation 40.9 (36.4-46.3) fL RDW Coeff of Andres 12.7 (11.5-14.5) % Plt Count 150 (130-400) K/uL MPV 10.3 (7.4-10.4) fL Immature Gran % (Auto) % Neut % (Auto) % Lymph % (Auto) % [place] % (Auto) % Eos % (Auto) % Baso % (Auto) % Immature Gran # (Auto) (0.00-0.02) K/uL Neut # (Auto) (1.4-6.5) K/uL Lymph # (Auto) (1.2-3.4) K/uL [place] # (Auto) (0.11-0.59) K/uL Eos # (Auto) (0-0.5) K/uL Baso # (Auto) (0-0.2) K/uL PT (9.0-12.0) Seconds INR (0.9-1.1) APTT (21.0-31.0) Seconds PTT Ratio Sodium 139 (136-145) mmol/L Potassium 4.0 (3.5-5.1) mmol/L Chloride 109 H (98-107) mmol/L Carbon Dioxide 24 (21-32) mmol/L Anion Gap 6.0 (3-11) BUN 28 H (7-18) mg/dl Creatinine 1.07 (0.6-1.4) mg/dl Est Cr Clr Drug Dosing 74.9 ml/min Est GFR ( Amer) 82.2 Est GFR (Non-Af Amer) 71.0 BUN/Creatinine Ratio 26.4 H (10-20) Glucose 119 H (70-99) mg/dl Estimat Average Glucose mg/dl Hemoglobin A1c (4.5-5.6) % Calcium 8.7 (8.5-10.1) mg/dl Albumin (3.4-5.0) gm/dl Urine Color Urine Appearance (Clear) Urine pH (4.5-7.5) Ur Specific [place] (1.000-1.030) Urine Protein (Negative) Urine Glucose (UA) (Negative) Urine Ketones (Negative) Urine Blood (Negative) Urine Nitrite (Negative) Urine Bilirubin (Negative) Urine Urobilinogen (Negative) Ur Leukocyte Esterase (Negative) Blood Type Antibody Screen Total Time Total Time Spent Total Time Spent (In Minutes): 20 Discharge Plan Discharge Items Patient Disposition: Home - Home Health Services Reason For Visit: RIGHT KNEE OSTEOARTHRITIS Discharge Diagnosis: right total knee replacement Condition on Discharge: Good Activity: Per Instructions section Non-emergency contact: Surgeon Call non-emergency contact if: you have any medication questions, your temperature is above 101, your wound has increased redness, your wound has increased drainage and your wound pain has increased Follow-up/Referrals: Bin Meier [Primary Care Provider] - Diet: Regular Addtl Attending Provider Instructions: ACTIVITY RECOMMENDATIONS: SELF CARE INSTRUCTIONS AFTER TOTAL KNEE REPLACEMENT A. You may need to continue a physical therapy program after discharge from the hospital. There are several options available to you. Your doctor will assist you in selecting the best one for you. 1. An out-patient facility 2 to 3 times a week for therapy or home therapy. 2. Continue working on all exercises taught to you in the hospital. Your goals should be to increase bending of your knee to 90 degrees and beyond and to fully straighten your knee. B. You may progress at your own pace from walking with a walker or crutches to a cane; then to no assistive devices. C. Make walking a part of your daily routine. Be up as much as comfortable with rest periods throughout the day. Rest with leg elevation is very important. Use the ice wrap frequently for the first 3-4 weeks. D. There are no restrictions on activities. You may ride in a car, shop, participate in box feeder and all social activities. E. Wear the long elastic stockings (THERESA hose) 20 hours a day for 2 weeks after surgery. They can be removed several times a day for laundering and for a bath. F. You may shower, no tub baths until cleared by your doctor. SPECIAL CARE INSTRUCTIONS: VERY IMPORTANT TO READ AND REVIEW A. There are a few signs you need to watch for after you are home. Call [facility] if you notice any of the followin. Increased severe knee pain. Some pain is expected especially when you exercise. 2. Increased swelling in your leg or knee; pain or swelling of the calf muscle in either lower leg. 3. Any fluid drainage from the incision. 4. Shortness of breath or chest pain. B. Please call [facility] at if you have any concerns or questions about your operation or recovery. The doctor or his nurse will return your call promptly. C. You must take antibiotics before dental work, bladder, bowel or other surgery. Your doctor will provide you with a permanent care to carry describing this precaution. IMPORTANT: * REMEMBER TO TAKE ASPIRIN, 81 MG, TWICE DAILY FOR 4 WEEKS UNLESS OTHERWISE DIRECTED. THIS IS YOUR BLOOD THINNER. * HIGH RISK PATIENTS MAY BE PRESCRIBED A STRONGER BLOOD THINNER. THIS WILL BE PROVIDED AT DISCHARGE. * CALL IF INCREASED PAIN, REDNESS, DRAINAGE OR FEVER GREATER THAT 101. * WEAR THERESA HOSE 20 HOURS PER DAY FOR 2 WEEKS. * AGUILAR Dressing- This is a large suction dressing covering your incision. This will help pull any excess drainage from the wound and allow your incision to heal properly. You may shower with this if you can keep the unit outside of the shower. If any bleeding or leakage is noted please call your doctor's office. This will remain on your incision for 7 days and then should be removed. This can be done yourself or by the home nursing staff if applicable. The entire unit is disposable once removed. Once removed, keep incision clean and dry. If redness or drainage is noted, please call your surgeon. IF INCISION IS LEAKING THROUGH DRESSING, CALL THE OFFICE . FOLLOW UP VISIT: If appointment is not already scheduled: Please call [facility] to make a follow-up appointment for 2 weeks after your surgery at . Pending Studies at Discharge: No Stand-Alone Forms: My [employer], Opioid Pain Management, Smoking Cessation Medications and DC Order Prescriptions: New celecoxib [Celebrex] 200 mg Capsule 200 mg PO BID 30 Days Qty: 60 RF: 0 aspirin [Ecotrin Low Strength] 81 mg Tablet,Delayed Release (Dr/Ec) 81 mg PO BID 30 Days Qty: 60 RF: 0 acetaminophen 500 mg Tablet 1,000 mg PO Q8 14 Days Qty: 84 RF: 0 oxycodone 5 mg Tablet 5 - 10 mg PO Q6H PRN (Reason: pain) Qty: 30 RF: 0 docusate sodium 100 mg Capsule 100 mg PO BID 10 Days Qty: 20 RF: 0 Continued tamsulosin 0.4 mg Capsule 0.8 mg PO HS RF: 0 gabapentin 300 mg Capsule 300 mg PO BID RF: 0 pravastatin 20 mg Tablet 20 mg PO HS RF: 0 dutasteride 0.5 mg Capsule 0.5 mg PO QPM RF: 0 cholecalciferol (vitamin D3) [Vitamin D3] 2,000 unit Tablet 2,000 unit PO QAM RF: 0 Discontinued meloxicam [Mobic] 15 mg Tablet 15 mg PO QAM RF: 0 tramadol 50 mg Tablet 100 mg PO BID PRN (Reason: Pain) RF: 0 [facility] 750 mg-100 mg- 1.65 mg-108 mg Tablet 1 tab PO BID RF: 0 Discharge Orders: Discharge Order (Routine); Ordered 01/06/20 Ordered By: Luther Sharp Admission Data Admit Date/Time: 01/04/20 10:00 Attending Provider: Ronal Solis Admit Provider: Ronal Solis Primary Care Provider: Bin Meier Other Interventions: Discharge Summary Assessment (RN) Last Done: 01/06/20 10:10 DC Date/Time DO NOT enter until pt leaves facility: 01/06/20 12:00
== END 2020-01-06 12:00 | disposition home health service (06) | DRG 470 ==
LOC: ASU 05:16 → 3E 10:00